=== PATIENT | female | born 1965 | race Caucasian/White ===

== ENCOUNTER 2018-09-28 19:20 | Emergency (ER) | payer SELFPAY ==
[~2018-09-28] VITALS: Ht 149.9 cm; Wt 90.7 kg
--- OUTSIDE RECORDS SUMMARY | 2018-09-28 19:26 | XMS REPORT | Continuity of Care Document ---
Demographics Preferred Language Unknown Marital Status Unknown Zoroastrian Affiliation Unknown Race Unknown Ethnic Group Unknown Author Author [facility] Address Unknown Phone Unavailable Allergies There is no data. Medications There is no data. 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 08/21/2012 796.2 ELEVATED BLOOD PRESSURE READING WITHOUT DIAGNOSIS OF HYPERTENSION 08/21/2012 278.01 MORBID OBESITY 08/21/2012 704.42 PILAR CYST PROLIFERATING TRICHILEMMAL 08/21/2012 796.2 ELEVATED BLOOD PRESSURE READING WITHOUT DIAGNOSIS OF HYPERTENSION 08/21/2012 278.01 MORBID OBESITY 08/21/2012 704.42 PILAR CYST PROLIFERATING TRICHILEMMAL 08/21/2012 796.2 ELEVATED BLOOD PRESSURE READING WITHOUT DIAGNOSIS OF HYPERTENSION 08/21/2012 278.01 MORBID OBESITY 08/21/2012 704.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 CYST PROLIFERATING TRICHILEMMAL 08/21/2012 796.2 ELEVATED BLOOD PRESSURE READING WITHOUT DIAGNOSIS OF HYPERTENSION 08/21/2012 278.01 MORBID OBESITY 08/21/2012 704.42 PILAR CYST PROLIFERATING TRICHILEMMAL 08/21/2012 796.2 ELEVATED BLOOD PRESSURE READING WITHOUT DIAGNOSIS OF HYPERTENSION 08/21/2012 278.01 MORBID OBESITY 08/21/2012 704.42 PILAR CYST PROLIFERATING TRICHILEMMAL 08/21/2012 796.2 ELEVATED BLOOD PRESSURE READING WITHOUT DIAGNOSIS OF HYPERTENSION 08/21/2012 278.01 MORBID OBESITY 08/21/2012 704.42 PILAR CYST PROLIFERATING TRICHILEMMAL 08/21/2012 796.2 ELEVATED BLOOD PRESSURE READING WITHOUT DIAGNOSIS OF HYPERTENSION 08/21/2012 278.01 MORBID OBESITY 08/21/2012 704.42 PILAR CYST PROLIFERATING TRICHILEMMAL 08/21/2012 796.2 ELEVATED BLOOD PRESSURE READING WITHOUT DIAGNOSIS OF HYPERTENSION 09/22/2012 706.2 SEBACEOUS CYST 09/22/2012 706.2 SEBACEOUS CYST 09/22/2012 706.2 SEBACEOUS CYST 09/22/2012 706.2 SEBACEOUS CYST 09/22/2012 706.2 SEBACEOUS CYST 09/22/2012 706.2 SEBACEOUS CYST 09/22/2012 706.2 SEBACEOUS CYST 10/28/2012 NODX NO DIAGNOSIS 11/23/2012 465.9 UPPER RESPIRATORY INFECTION Procedures Code [place] [address] US HEAD (SOFT TISSUE) ULTRASOUND, HEAD 08/21/2012 81496 EXCISION BENIGN LESION 1.1- 2 cm (specify location in [facility]) 10/16/2012 09010 NO CHARGE 10/19/2012 97517 NO CHARGE 10/21/2012 76599 NO CHARGE 10/23/2012 Results There is no data. Encounters ACCT No. Visit Date/Time Discharge Status Pt. Type Provider Facility Loc./Unit Complaint [id number] 11/23/2012 15:31:00 11/23/2012 23:59:59 CLS Outpatient [id number] 10/28/2012 09:27:00 10/28/2012 23:59:59 CLS Outpatient [id number] 10/23/2012 08:21:00 10/23/2012 23:59:59 CLS Outpatient [id number] 10/21/2012 09:45:00 10/21/2012 23:59:59 CLS Outpatient [id number] 10/19/2012 15:14:00 10/19/2012 23:59:59 CLS Outpatient [id number] 10/16/2012 13:23:00 10/16/2012 23:59:59 CLS Outpatient [id number] 09/22/2012 14:43:00 09/22/2012 23:59:59 CLS Outpatient [id number] 08/21/2012 10:30:00 08/21/2012 23:59:59 CLS Outpatient
[2018-09-28 19:53] LABS: BASOPHILS % (AUTO) 1 % (0-10); EOSINOPHILS # (AUTO) 0.1 10^3/uL (0.0-0.3); EOSINOPHILS % (AUTO) 2 % (0-10); HEMATOCRIT 44 % (35-52); HEMOGLOBIN 15.5 G/DL (11.5-16.0); LYMPHOCYTES # (AUTO) 2.2 X 10^3 (1.0-4.0); LYMPHOCYTES % (AUTO) 37 % (12-44); MEAN CORPUSCULAR HEMOGLOBIN 29 PG (25-34); MEAN CORPUSCULAR HGB CONC 35 G/DL (32-36); MEAN CORPUSCULAR VOLUME 83 FL (80-99); MEAN PLATELET VOLUME 10.5 FL (7.4-10.4); MONOCYTES # (AUTO) 0.4 X 10^3 (0.0-1.0); MONOCYTES % (AUTO) 7 % (0-12); NEUTROPHILS # (AUTO) 3.3 X 10^3 (1.8-7.8); NEUTROPHILS % (AUTO) 54 % (42-75); PLATELET COUNT 245 10^3/uL (130-400); RED BLOOD COUNT 5.33 10^6/uL (4.35-5.85); WHITE BLOOD COUNT 6.1 10^3/uL (4.3-11.0)
[2018-09-28 19:56] LABS: BILIRUBIN,URINE NEGATIVE (NEGATIVE); CLARITY,URINE CLEAR; COLOR,URINE YELLOW; GLUCOSE, URINE (UA) 4+ (NEGATIVE); KETONES,URINE 1+ (NEGATIVE); LEUKOCYTE ESTERASE ,URINE 3+ (NEGATIVE); NITRITE,URINE NEGATIVE (NEGATIVE); PH,URINE 7 (5-9); PROTEIN,URINE NEGATIVE (NEGATIVE); UROBILINOGEN,URINE NORMAL (NORMAL)
[2018-09-28] MEDS ORDERED: NS IV 1000 ML 1,000 ML IV SCH (20:00)
[2018-09-28 20:04] LABS: YEAST,URINE MODERATE /HPF
[2018-09-28 20:10] LABS: ALANINE AMINOTRANSFERASE 27 U/L (0-55); ALBUMIN 4.2 GM/DL (3.2-4.5); ALKALINE PHOSPHATASE 90 U/L (40-136); AMYLASE 17 U/L (25-125); BILIRUBIN,TOTAL 0.6 MG/DL (0.1-1.0); BUN/CREATININE RATIO 12; CALCIUM 9.1 MG/DL (8.5-10.1); CARBON DIOXIDE 24 MMOL/L (21-32); CHLORIDE 101 MMOL/L (98-107); CREATININE SERUM 0.94 MG/DL (0.60-1.30); GFR ESTIMATED > 60; LIPASE 27 U/L (8-78); POTASSIUM 4.3 MMOL/L (3.6-5.0); SODIUM 138 MMOL/L (135-145); TOTAL PROTEIN 7.3 GM/DL (6.4-8.2)
[2018-09-28 20:15] LABS: GLUCOSE 468 MG/DL (70-105)
--- NOTE | 2018-09-28 20:49 | ED General ---
General Chief Complaint: Glucose Problems Stated Complaint: GLUCOSE >2000, KETONES 40+ Nursing Triage Note: Pt ambulated to rm 5 w/o difficulty. Pt was sent to ED by Daron Hernandez APRN. Pt was seen by [facility] for chronic vaginal yeast infection. Pt's urine dip was performed at visit, and pt's glucose was >2000 and ketones 40+. Pt was sent to ED by [facility] for further evaluation. Nursing Sepsis Screen: No Definite Risk Source of Information: Patient Exam Limitations: No Limitations History of Present Illness Date Seen by Provider: Sep 28, 2018 Time Seen by Provider: 19:25 Allergies and Home Medications Allergies Coded Allergies: No Known Drug Allergies (Unverified , 09/28/18) Home Medications Metformin HCl 500 Mg Tablet, 500 MG PO BID Prescribed by: ABRAHAM STYLES on 09/28/18 2250 Past Nwysdcy-Jibemw-Ktsnyc Hx Patient Social History Alcohol Use: Denies Use Recreational Drug Use: No Smoking Status: Never a Smoker 2nd Hand Smoke Exposure: No Recent Foreign Travel: No Contact w/Someone Who Travel: No Recent Infectious Disease Expo: No Recent Hopitalizations: No Seasonal Allergies Seasonal Allergies: No Past Medical History Surgeries: Yes Section Respiratory: No Cardiac: Yes Hypertension Neurological: No Genitourinary: No Gastrointestinal: No Musculoskeletal: No Endocrine: No HEENT: No Cancer: No Psychosocial: No Integumentary: No Blood Disorders: No Adverse Reaction/Blood Tranf: No Physical Exam Vital Signs Vital Signs - First Documented 09/28/18 19:25 Temp 97.9 Pulse 98 Resp 16 B/P (MAP) 201/122 (148) Pulse Ox 98 O2 Delivery Room Air Capillary Refill : Less Than 3 Seconds Height, Weight, BMI Height: 4'11.00" Weight: 200lbs. oz. 90.261762uz; BMI Method:Estimated Progress/Results/Core Measures Suspected Sepsis Recent Fever Within 48 Hours: No Infection Criteria Present: None New/Unexplained Altered Menta: No Sepsis Screen: No Definite Risk SIRS Temperature:97.9 Pulse: 98 Respiratory Rate: 16 Laboratory Tests 09/28/18 19:42: White Blood Count 6.1 Blood Pressure 201 /122 Mean: 148 Laboratory Tests 09/28/18 19:42: Creatinine 0.94, Platelet Count 245, Total Bilirubin 0.6 Results/Orders Lab Results Laboratory Tests Test 09/28/18 19:34 09/28/18 19:42 09/28/18 19:50 09/28/18 21:07 Range/Units Glucometer 434 *H 345 H 70-110 MG/DL White Blood Count 6.1 4.3-11.0 10^3/uL Red Blood Count 5.33 4.35-5.85 10^6/uL Hemoglobin 15.5 11.5-16.0 G/DL Hematocrit 44 35-52 % Mean Corpuscular Volume 83 80-99 FL Mean Corpuscular Hemoglobin 29 25-34 PG Mean Corpuscular Hemoglobin Concent 35 32-36 G/DL Red Cell Distribution Width 13.0 10.0-14.5 % Platelet Count 245 130-400 10^3/uL Mean Platelet Volume 10.5 H 7.4-10.4 FL Neutrophils (%) (Auto) 54 42-75 % Lymphocytes (%) (Auto) 37 12-44 % Monocytes (%) (Auto) 7 0-12 % Eosinophils (%) (Auto) 2 0-10 % Basophils (%) (Auto) 1 0-10 % Neutrophils # (Auto) 3.3 1.8-7.8 X 10^3 Lymphocytes # (Auto) 2.2 1.0-4.0 X 10^3 Monocytes # (Auto) 0.4 0.0-1.0 X 10^3 Eosinophils # (Auto) 0.1 0.0-0.3 10^3/uL Basophils # (Auto) 0.0 0.0-0.1 10^3/uL Sodium Level 138 135-145 MMOL/L Potassium Level 4.3 3.6-5.0 MMOL/L Chloride Level 101 98-107 MMOL/L Carbon Dioxide Level 24 21-32 MMOL/L Anion Gap 13 5-14 MMOL/L Blood Urea Nitrogen 11 7-18 MG/DL Creatinine 0.94 0.60-1.30 MG/DL Estimat Glomerular Filtration Rate > 60 BUN/Creatinine Ratio 12 Glucose Level 468 *H 70-105 MG/DL Calcium Level 9.1 8.5-10.1 MG/DL Corrected Calcium 8.9 8.5-10.1 MG/DL Total Bilirubin 0.6 0.1-1.0 MG/DL Aspartate Amino Transf (AST/SGOT) 21 5-34 U/L Alanine Aminotransferase (ALT/SGPT) 27 0-55 U/L Alkaline Phosphatase 90 40-136 U/L Total Protein 7.3 6.4-8.2 GM/DL Albumin 4.2 3.2-4.5 GM/DL Amylase Level 17 L 25-125 U/L Lipase 27 8-78 U/L Urine Color YELLOW Urine Clarity CLEAR Urine pH 7 5-9 Urine Specific [place] 1.010 L 1.016-1.022 Urine Protein NEGATIVE NEGATIVE Urine Glucose (UA) 4+ H NEGATIVE Urine Ketones 1+ H NEGATIVE Urine Nitrite NEGATIVE NEGATIVE Urine Bilirubin NEGATIVE NEGATIVE Urine Urobilinogen NORMAL NORMAL MG/DL Urine Leukocyte Esterase 3+ H NEGATIVE Urine RBC (Auto) NEGATIVE NEGATIVE Urine RBC NONE /HPF Urine WBC 10-25 H /HPF Urine Squamous Epithelial Cells 2-5 /HPF Urine Crystals NONE /LPF Urine Bacteria NONE /HPF Urine Casts NONE /LPF Urine Mucus NEGATIVE /LPF Urine Yeast MODERATE H /HPF Urine Culture Indicated YES Test 09/28/18 21:51 09/28/18 22:35 Range/Units Glucometer 309 H 320 H 70-110 MG/DL My Orders Orders - ABRAHAM STYLES Comprehensive Metabolic Panel (09/28/18 19:23) Lipase (09/28/18 19:23) Amylase (09/28/18 19:23) Ua Culture If Indicated (09/28/18 19:23) Saline Lock/Iv-Start (09/28/18 19:23) Cbc With Automated Diff (09/28/18 19:23) Accucheck Stat ONCE (09/28/18 19:23) Ns Iv 1000 Ml (Sodium Chloride 0.9%) (09/28/18 20:00) Urine Culture (09/28/18 19:50) Insulin (Regular) Human (Humulin R (Per (09/28/18 21:00) Insulin (Regular) Human (Humulin R (Per (09/28/18 22:00) Vital Signs/I&O 09/28/18 19:25 Temp 97.9 Pulse 98 Resp 16 B/P (MAP) 201/122 (148) Pulse Ox 98 O2 Delivery Room Air Capillary Refill : Less Than 3 Seconds Blood Pressure Mean: 148 Point of Care Testing Finger Stick Blood Glucose: 434 Blood Glucose Action Taken: abraham styles notified Departure Impression Primary Impression: New onset type 2 diabetes mellitus Disposition: 01 HOME, SELF-CARE Condition: Stable/Unchanged Departure-Patient Inst. Decision time for Depature: 22:48 Referrals: PARUL HESS BRENT L DO (PCP/Family) Primary Care Physician Patient Instructions: Diabetes Type 2 (DC), Diabetic Meal Planning Add. Discharge Instructions: Follow-up with Dr. Rosas office tomorrow morning by calling for an appointment time. If you're unable to get an appointment time go to [facility] and be seen in the walk-in clinic and establish care. Take medication as directed. You need to get a glucometer to keep accurate records of your blood sugars to take to your doctor's appointment. You need to eat a diet that is low in sugars and carbohydrates to help your blood sugar stay low. Return back to the emergency room for any worsening symptoms or concerns as needed. All discharge instructions reviewed with patient and/or family. Voiced understanding. Scripts Metformin HCl (Metformin HCl) 500 Mg Tablet 500 MG PO BID for 7 Days, #14 TAB Prov: ABRAHAM STYLES 09/28/18 ABRAHAM STYLES Sep 28, 2018 20:49
[2018-09-28] MEDS ORDERED: inSUlin (REGULAR) HUMAN 1 UNIT/0.01 ML (CHARGE PER UNIT) SC SCH ×2 (21:00→22:00)
[2018-09-28] MEDS ORDERED: METF-397 PO (22:50)
[2018-09-28 22:59] VITALS: BP 155/70
== END 2018-09-28 23:00 | disposition home or self-care (01) ==
LOC: EDUNIT# 19:20 → ER 19:23
DX: E11.9 Type 2 diabetes mellitus without complications (principal); I10 Essential (primary) hypertension; Z86.19 Personal history of other infectious and parasitic diseases; Z79.84 Long term (current) use of oral hypoglycemic drugs; Z98.890 Other specified postprocedural states
CPT/HCPCS: 36415; 80053; 81000; 82150; 82962; 83690; 85025; 87088